=== PATIENT | female | born 1975 | race Caucasian/White ===

== ENCOUNTER 2017-03-22 16:37 | Emergency (ER) | payer MEDICAID ==
[2017-03-22 19:31] VITALS: BP 115/72
== END 2017-03-22 19:31 | disposition home or self-care (01) ==
LOC: ED 16:37
DX: S16.1XXA Strain of muscle, fascia and tendon at neck level, initial encounter (principal); X58.XXXA Exposure to other specified factors, initial encounter; Y93.89 Activity, other specified; Y99.8 Other external cause status; Y92.89 Other specified places as the place of occurrence of the external cause
CPT/HCPCS: 72072; J1885; J3360

== ENCOUNTER 2018-09-06 18:23 | Emergency (ER) | payer MEDICAID ==
[~2018-09-06] VITALS: Ht 162.6 cm; Wt 60.3 kg
[2018-09-06 18:27] VITALS: Ht 162.6 cm; Wt 60.3 kg
[2018-09-06 19:17] LABS: BASOPHIL % 0.3 % (0-2); RED CELL DISTRIBUTION WIDTH 13.6 % (11.5-14.5)
[2018-09-06 19:18] LABS: PLATELET COUNT 471 x10^3mcL (130-400)
[2018-09-06 19:30] LABS: CALCIUM 8.4 mg/dL (8.5-10.1); CHLORIDE SERUM 105 mmol/L (98-107); CREATININE SERUM 0.6 mg/dL (0.6-1.0); GFR1 > 60 mL/min; GLUCOSE SERUM 98 mg/dL (74-106); POTASSIUM SERUM 3.8 mmol/L (3.5-5.1); SODIUM SERUM 139 mmol/L (136-145)
[2018-09-06 19:35] LABS: ALKALINE PHOSPHATASE 61 U/L (46-116); ALT/SGPT 14 U/L (14-59); AST/SGOT 14 U/L (15-37); BILIRUBIN TOTAL 0.24 mg/dL (0.20-1.00); TOTAL PROTEIN, SERUM 7.8 g/dL (6.4-8.2)
[2018-09-06 19:36] LABS: ALBUMIN 3.3 g/dL (3.4-5.0)
[2018-09-06 20:26] VITALS: BP 118/75
== END 2018-09-06 20:26 | disposition home or self-care (01) ==
LOC: ED 18:23
PROVIDERS: Emergency Medicine
DX: R00.2 Palpitations (principal); R20.0 Anesthesia of skin
CPT/HCPCS: 36415; Q0092